=== PATIENT | female | born 1985 | race Caucasian/White ===

== ENCOUNTER 2017-09-13 13:36 | Outpatient (CLI) | payer BC, OTHER | END 2017-09-13 13:37 | disposition home or self-care (01) | LOC: BICULT 13:36 | PROVIDERS: ATTEND Family Medicine | DX: E01.0 Iodine-deficiency related diffuse (endemic) goiter (principal) | CPT/HCPCS: 76536 ==

== ENCOUNTER 2020-02-27 07:49 | Outpatient (CLI) | payer OTHER ==
--- NOTE | 2020-02-27 09:35 | ULT ---
THYROID ULTRASOUND: INDICATION: Followup thyroid nodule. COMPARISON: Thyroid ultrasound of 09/13/2017. FINDINGS: Both lobes of thyroid are homogeneous and have normal size and appearance. Both lobes are equal in s ize. The small hypoechoic nodule in the mid left lobe is again seen and does not appear significantly mitchell ged. It continues to measure in the 5-7 mm range. IMPRESSION: Stable nodule left lobe of thyroid. Recommend annual followup exam. POS: OFF
== END 2020-02-27 07:50 | disposition home or self-care (01) ==
LOC: BICULT 07:49
PROVIDERS: ATTEND Otolaryngology Plastic Surgery within the Head & Neck
DX: E04.1 Nontoxic single thyroid nodule (principal)
CPT/HCPCS: 76536

== ENCOUNTER 2021-03-24 14:14 | Outpatient (CLI) | payer OTHER | END 2021-03-24 14:15 | disposition home or self-care (01) | LOC: BICULT 14:14 | PROVIDERS: ATTEND Otolaryngology Plastic Surgery within the Head & Neck | DX: E04.1 Nontoxic single thyroid nodule (principal); N60.02 Solitary cyst of left breast | CPT/HCPCS: 76536 ==